=== PATIENT | male | born 1980 | race Caucasian/White ===

== ENCOUNTER 2018-08-26 13:35 | Emergency (ER) | payer OTHER ==
[2018-08-26 14:14] VITALS: PULSE 70
[2018-08-26] MEDS ORDERED: MOTRIN 600 MG PO ONE (14:40)
[2018-08-26] MEDS ORDERED: MOTRIN 600 MG ONE (14:43)
--- NOTE | 2018-08-26 14:48 | ERPHSYRPT ---
- History of Present Illness Time Seen by Provider: 08/26/18 14:20 Source: patient Exam Limitations: clinical condition Patient Subjective Stated Complaint: CUT LEFT INDEX FINGER ON STOVE PIP AT NOON TODAY.. LAC OVER THE KNUCKLE Triage Nursing Assessment: LAC TO THE LEFT INDEX FINGER AT THE KNUCKLE.. BLEEDING CONTROLLED. PAIN WITH BENDING. + RADIAL PULSE PRESENT Physician History: PATIENT SUSTAINED LACERATION TO LEFT INDEX FINGER AFTER SLIDING A PIPE ACROSS WOUND, SUSTAINING LACERATION. HAS PREVIOUS NUMBNESS AND PAIN TO LEFT INDEX FINGER FROM TRAUMATIC CRUSH INJURY IN THE PAIN. Occurred: just prior to arrival Method of Injury: incised Quality: constant Severity of Pain-Max: mild Severity of Pain-Current: mild Extremities Pain Location: 2nd finger: left Modifying Factors: Improves With: movement Associated Symptoms: none Allergies/Adverse Reactions: amoxicillin [Amoxicillin] Allergy (Verified 12/29/13 11:07) Rash Home Medications: Levothyroxine Sodium [Synthroid] 0 12/29/13 [History] Hx Tetanus, Diphtheria Vaccination/Date Given: Yes Hx Influenza Vaccination/Date Given: No Hx Pneumococcal Vaccination/Date Given: No Immunizations Up to Date: Yes - Review of Systems Constitutional: No Fever, No Chills Musculoskeletal: Injury - Past Medical History Pertinent Past Medical History: Yes Endocrine Medical History: Hypothyroidism - Past Surgical History Past Surgical History: Yes Musculoskeletal: Orthopedic Surgery Other Surgical History: RIGHT KNEE - Social History Smoking Status: Never smoker Exposure to second hand smoke: No Drug Use: none Patient Lives Alone: No - Nursing Vital Signs Nursing Vital Signs: Initial Vital Signs Temperature 98 F 08/26/18 14:09 Pulse Rate 70 08/26/18 14:09 Respiratory Rate 16 08/26/18 14:09 Blood Pressure 132/79 08/26/18 14:09 O2 Sat by Pulse Oximetry 99 08/26/18 14:09 Pain Scale Pain Intensity 5 - Physical Exam General Appearance: alert Hand Exam: normal ROM, laceration (THERE IS A 1.3CM LACERATION OVER LEFT INDEX FINGER PIP JOINT RADIAL ASPECT, NO EVIDENCE OF TENDON LACERATION OR FOREIGN BODY ) DTR - Upper Extremity Exam: bicep (R): 2+, bicep (L): 2+, tricep (R): 2+, tricep (L): 2+ Neuro/Tendon Exam: normal sensation Mental Status Exam: alert, oriented x 3 Skin Exam: normal color SpO2 Interpretation: normal SpO2: 99 Procedures - Laceration/Wound Repair Left Finger Wound Location: Left (INDEX FINGER) Wound Length (cm): 1.3 Wound's Depth, Shape: linear Wound Explored: clean Irrigated: Yes Hibiclens Prep: Yes Anesthesia: digital block, 2% Lidocaine Volume Anesthetic (ccs): 4 Wound Repaired With: sutures Suture Size/Type: 4-0 Number of Sutures: 4 Ordered Tests: Medication Summary Generic Name Dose Route Start Last Admin Trade Name Memoq PRN Reason Stop Dose Admin Ibuprofen 600 mg 08/26/18 14:40 Motrin 600 Mg PO 08/26/18 14:41 STAT ONE - Progress Counseled pt/family regarding: diagnosis, need for follow-up - Departure Time of Disposition: 14:55 Departure Disposition: Home Clinical Impression: LACERATION LEFT INDEX FINGER Condition: Stable Critical Care Time: No Additional Instructions: REMOVE TUBE GAUZE DRESSING TOMORROW THEN APPLY A LOOSE WIDE BANDAID OVER WOUND EVERY 4-6 HOURS NEEDED. WATCH FOR SIGNS OF INFECTION REDNESS, SWELLING OR DRAINAGE. TYLENOL OR MOTRIN NEEDED FOR PAIN. ANTIBIOTIC KEFLEX 500MG EVERY 6 HOURS F0R 10 DAYS. HAVE STITCHES REMOVED AT 8 DAYS. Prescriptions: Cephalexin Mh 500 mg [Keflex 500 mg] 500 mg PO QID #40 capsule
[2018-08-26 15:07] VITALS: BP 136/70; O2SAT 98
== END 2018-08-26 15:00 | disposition home or self-care (01) ==
LOC: ED 13:35
DX: S61.211A Laceration without foreign body of left index finger without damage to nail, initial encounter (principal); W26.8XXA Contact with other sharp object(s), not elsewhere classified, initial encounter
CPT/HCPCS: 12001; 99283; A9270-GY